=== PATIENT | female | born 1985 | race African-American/Black ===

== ENCOUNTER 2017-03-23 07:13 | Emergency (ER) | payer OTHER ==
[~2017-03-23] VITALS: Ht 165.1 cm; Wt 49.4 kg
[~2017-03-23 07:13] MED LIST: IBUPROFEN800 MG PO; PRENATAL VITAM1 EAC1 PO
[2017-03-23] MEDS ORDERED: PLAN B ONE-STE1.5 MG PO (08:06)
[2017-03-23 08:19] VITALS: BP 129/61
== END 2017-03-23 08:20 | disposition home or self-care (01) ==
LOC: EME 07:13
DX: Z30.012 Encounter for prescription of emergency contraception (principal); F17.200 Nicotine dependence, unspecified, uncomplicated
CPT/HCPCS: 99281; 99283